=== PATIENT | female | born 1965 ===

== ENCOUNTER 2024-05-23 16:21 | Observation (INO) | payer BC, SELFPAY ==
[2024-05-23] VITALS (10 sets, daily range): BP systolic 113–155; BP diastolic 59–140; BMI 26.9; BMI 25.9
[2024-05-23 08:41] LABS: % Basophils 0.4 % (0-2); % Eosinophils 1.5 % (0-6); % Immature Granulocytes 0.5 % (0-0.5); % Monocytes 6.4 % (1.7-9.3); % Neutrophils 72.2 % (42.2-75.2); Absolute Eosinophils 0.1 10^3/uL (0-0.7); Absolute Lymphocytes 1.4 10^3/uL (1.2-3.4); Absolute Monocytes 0.5 10^3/uL (0.1-0.6); Absolute Neutrophils 5.3 10^3/uL (1.4-6.5); Hematocrit 40.1 % (37.0-47.0); Hemoglobin 13.3 g/dL (12.0-16.0); Mean Corp Hgb Conc. 33.2 g/dL (33.0-37.0); Mean Corpuscular Hgb 30.1 pg (27.0-31.0); Mean Corpuscular Volume 90.7 fL (81.0-99.0); Mean Platelet Volume 9.7 fL (7.4-10.4); Nucleated Red Blood Cells % 0 %; Platelet Count 345 10^3/uL (130-400); Red Blood Cell Count 4.42 10^6/uL (4.20-5.40); Red Cell Dist. Width 12.6 % (11.5-14.5); White Blood Cell Count 7.3 10^3/uL (4.8-10.8)
[2024-05-23 08:49] LABS: ALT (SGPT) 21 U/L (0-35); AST (SGOT) 23 U/L (14-36); Albumin 4.2 g/dl (3.5-5.0); Alkaline Phosphatase 70 U/L (38-126); Blood Urea Nitrogen 13 mg/dl (7-17); Calcium 9.7 mg/dl (8.4-10.2); Carbon Dioxide 29 mmol/L (22-30); Chloride 104 mmol/L (98-107); Glucose 98 mg/dl (70-99); Potassium 4.3 mmol/L (3.5-5.1); Sodium 139 mmol/L (135-145); Total Bilirubin 0.6 mg/dl (0.2-1.3); Total Protein 7.1 g/dl (6.3-8.2); eGFR > 60.00
[2024-05-23 08:59] LABS: Troponin I 0.017 ng/ml
[2024-05-23] MEDS: NSS 1000 IV (11:41)
[2024-05-23] MEDS: TORADOL 30 MG IV (11:41)
[2024-05-23 12:06] LABS: D-Dimer 3.12 ug/mlFEU (0.00-0.50)
[2024-05-23 12:10] LABS: COVID-19 Antigen Negative (Negative)
--- NOTE | 2024-05-23 12:38 | ED.GENMED ---
History of Present Illness
General
Chief Complaint: Breathing Problem
Source: patient
Exam Limitations: none
Time Seen by Provider: 05/23/24 10:44
Nursing documentation reviewed up to this point in time: agreed with
History of Present Illness
History of Present Illness:
PTIS A 58 Y/O F
gerd, anxiety
on 05/12 tested positive for INFLUENZA A at pcp office
symptoms headache, congestion, stuffy nose,
her pcp gave her tamiflu which she didn't take and amoxicillin (not sure why)
pt [place] and went there and back via flight
she did have a lay over
pt says she felt really ill while in [place] and flew home nad hasn't gotten better
now with more of a cough occasionally, brain fog and sob with chest tightness at times thepast 2 days
she hasnot really felt significantly SOB, she can still walk around
no syncope, voimting, diarrhea.
she has generalized [address]
Past History
Past History
ED Past Medical History: GERD and Psychiatric
ED Past Surgical History: Gynecological and Orthopedic
Review of Systems
Review of Systems
Allergies reviewed?: Yes
All Other Systems: Not applicable
Phy Exam
Physical Exam
Physical Exam:
GENERAL: Alert , in no apparent distress, nontoxic appearing
Head: Normocephalic atraumatic
EYE: pupils equal and reactive
NECK: Supple
ENT: o/p clr, mmm.
CARDIAC: Regular rate and rhythm, no edema
LUNGS: Clear breath sounds bilaterally, no acute respiratory distress, no wheezes/rales/rhonchi
ABDOMEN: Soft, without focal tenderness, no r/g, no cvat, normal bowel sounds
NEUROLOGICAL: Alert and oriented, no focal neuro deficits
SKIN: Warm and dry, skin intact.
MUSCULOSKELETAL: No edema, well perfused. neg adarsh's sign
PSYCH: Normal and appropriate interaction.
Scores
Heart Failure Risk
Heart Failure Risk Score: Not Applicable
Course
Orders/Labs/Results
Orders:
Orders
05/23/24
Electrocardiogram (*1) Stat
Comment: DONE
05/23/24 08:04
Electrocardiogram (*1) Urgent
Reason for Study: Chest Pain
Chest [CR Chest - 2 Views ] Urgent
Comment:
Reason For Exam: SOB
05/23/24 08:05
EKG- Treatment ONCE
05/23/24 08:17
Complete Blood Count/With Diff Urgent
Comprehensive Metabolic Panel Urgent
Troponin I Urgent
05/23/24 11:29
0.9% Sodium Chloride 1000 ml [Nss] 1,000 ml IV BOLUS
Ketorolac [Toradol] 30 mg IV NOW STA
05/23/24 11:42
COVID-19 Antigen Urgent
Source: Nasal Swab
D-Dimer Urgent
Troponin I Urgent
05/23/24 12:18
CT Chest PE Study Urgent
Comment:
Reason For Exam: elev d dimer, recent flu, sob
05/23/24 12:55
Electrocardiogram (*1) Urgent
Reason for Study: Chest Pain
EKG- Treatment ONCE
05/23/24 14:57
Aspirin Chewable [Low Strength Aspirin] 324 mg PO NOW STA
05/23/24 15:29
Admit/Transfer Patient As Directed
Co-Sign Provider:
Level of Care: Observation services
Assign to:: Telemetry
Physician / Group: Peter Fontaine
Diagnosis: chest pain
Reason for Telemetry: Arrhythmia
Date to Stop Telemetry: 05/26/24
Time to Stop Telemetry: 11:00
05/23/24 15:32
Code Status As Directed
Resuscitation Status: Full Code
PRN Pain Medication Management As Directed
May give lesser potent ordered pain med per pt: Yes
preference::
Protocol:: Medication orders for pain may be administered in a
manner that supports deferring to patient preference
when the pt is:
- Requesting an ordered lesser potent pain medication.
Least to most potent pain medications are defined
as: acetaminophen < NSAID < tramadol < opioids
(morphine, oxycodone, hydromorphone).
- Requesting a lesser dose of the same medication IF
ORDERED.
- Requesting a less intrusive route of administration
if both routes are prescribed by the provider (PO <
IV).
05/26/24 11:00
DC Protocol for Telemetry ONCE
Abnormal Lab Results
05/23/24 05/23/24
08:17 11:42
Lymphocytes % 19.0 L %
(20.5-51.1)
D-Dimer 3.12 H ug/mlFEU
(0.00-0.50)
05/23/24 08:17
05/23/24 08:17
Vital Signs
Initial and Last Documented VS:
Initial Vital Signs
Temp Pulse Resp BP Pulse Ox
36.7 C 57 18 130/81 100
05/23/24 08:00 05/23/24 08:00 05/23/24 08:00 05/23/24 08:00 05/23/24 08:00
Last Documented Vital Signs
Temp Pulse Resp BP Pulse Ox
36.7 C 58 15 127/88 100
05/23/24 08:00 05/23/24 12:15 05/23/24 12:15 05/23/24 12:00 05/23/24 12:15
MDM/Problems Addressed
Differential Diagnosis Includes:
COVID, pneumonia, PE, ACS, myocarditis, pericarditis
MDM/Problems Addressed:
58-year-old female with a history of GERD and anxiety presents with symptoms ongoing after being diagnosed with the flu 2 weeks ago. Patient did travel to and from [place] on an airplane while she was sick. The last 2 days specifically she is little
short of breath and does not feel right. She does have a exertional fatigue as well
carlos quiroz 58 y/o F
healthy
flu A + PCP office 05/12; headache, congestion, mild cough
traveled to and from [place] during this
came back a feels like she isn't better
but then 2 days started having exertional dyspnea and fatigue; brain fog
doesn't feel well
exam benign
no murmur appreciated
ekg t wave inv inferiorlaterally; no old ekg here but she said she has been told her ekg is abnormal
1st trop 0.017
d dimer elevated, PE study neg
2nd trop 0.03, ekg now flat t waves laterally
d/w dr. barry; pthas exertional dyspnea and fatigue; so felt best to admit, cards, echo, trop
*Critical Care Note
Total Time (30-74mins, 75-104mins- exclusive of procedures): Not Applicable
ED Attending Note
-
Portions of this chart may have been created with voice recognition software.� Occasional wrong word or��sound alike� substitutions may have occurred due to the inherent limitations of voice recognition software.
Discharge Plan
Departure
Patient Disposition: Admit
Date of Disposition: 05/23/24
Time of Disposition: 14:44
Admit to: Telemetry
Presentation/result/management discussed w/ accepting MD/DO: Hospitalist
Condition: Fair
Covid-19: Not Applicable
Discharge Problem:
CHEN (dyspnea on exertion)
Prescriptions:
No Action
DHEA 50 mg Capsule
50 mg PO DAILY
sertraline 25 mg Tablet
25 mg PO DAILY
cholecalciferol (vitamin D3) [Vitamin D3] 25 mcg (1,000 unit) Tablet
25 mcg PO DAILY
omeprazole 20 mg Tablet,Delayed Release (Dr/Ec)
20 mg PO DAILY
Referrals:
Kala Brown DO [Family Provider] -
Interventions
Interventions:
*Risk Screen - Suicide Last Done: 05/23/24 08:00
*General Assessment Last Done: 05/23/24 08:00
*Neglect/Abuse Screening Last Done: 05/23/24 08:00
ED- Fall Risk Assessment Last Done: 05/23/24 11:18
*ED COVID-19 Vaccine History Last Done: 05/23/24 08:00
ED- Cardiac Assessment Last Done: 05/23/24 11:18
ED- Pulmonary Assessment Last Done: 05/23/24 11:18
Discharge Date and Time
Print Language: ROMANIAN
--- NOTE | 2024-05-23 15:03 | HPS.HSE ---
Addendum entered and electronically signed by Peter Fontaine MD 05/23/24 15:55:
I saw and examined the patient.
The TAILING MACHINE OPERATOR's note was reviewed and I agree with the note.
Comment:
58-year-old female past medical history of anxiety, presenting with complaints of chest pain with exertion, chest tightness, shortness of breath. Patient was recently found to be positive influenza A. Patient took course of amoxicillin. Patient
flew to [place] for event and back. States since influenza she has not felt well. Also does states of increasing stress. Also not sleeping well at nighttime. States she exercises daily. Denies history of high blood pressure. Drinks occasional
red wine. Denies smoking. Denies any prior cardiac event history.
General: Middle-age female eating sandwich, not in acute distress
HEENT: NormoCephalic, Moist mucous membranes, Atraumatic,
Respiratory: Clear and Non Labored Respirations
Cardiac: S1/S2, Regular Rhythm and Bradycardia; No Murmur, Rub or Gallop
GI: Soft, Non Tender, Non Distended and Normal Bowel Sounds; No Organomegaly
Musculoskeletal: No Clubbing, No Cyanosis and No Edema
Skin: Warm
Neuro: Awake, Alert, AO x 3 and Nonfocal/grossly intact
Psych: Calm and Intact Judgment/Insight
Impression
Chest pain with exertion
Elevated blood pressure
Anxiety
GERD
Abnormal EKG
Plan
COVID and influenza negative.
Status post 325 mg of aspirin
Check lipid panel, A1c and thyroid
CT chest were negative for pulmonary embolism and/or focal infiltrate.
Trend troponin
Check echocardiogram in the morning
Continue with Zoloft
Melatonin nightly
DVT prophylaxis
Original Note:
Family Physician
-
Family Physician: Kala Brown, DO
Chief Complaint
-
dyspnea, fatigue, chest tightness
History of Present Illness
Patient is [id number] female with past medical history significant for GERD and anxiety who presented to [facility] ED for evaluation of dyspnea, fatigue and chest tightness. Patient reports that on May 12, she tested positive for
influenza A at primary care office, she was not prescribed Tamiflu but due to leaving for [place] for wedding she took course of Amoxicillin (unsure why?). She reports since returning she has had increased dyspnea mostly exertional, fatigue, brain
fog, nausea and chest tightness. She is not sure she ever full recovered from influenza. Patient denies dizziness, fevers, chills, cough, vomiting, constipation, diarrhea or urinary symptoms. She states that she was prescribed DHEA recently for
increased fatigue, brain fog and insomnia symptoms.
Medical History
Past Medical History
Past Medical History: Reports Other
Additional Past Medical History:
GERD
anxiety
Past Surgical History: Reports Other
Additional Past Surgical History:
hysterectomy
right knee meniscus repair
Social History
Tobacco: Non-smoker
Alcohol: Occasional
Drug: None
Living: With Family
Employment: Employed
Family History
Family History: Not pertinent
Allergies / Home Medications
Allergies reflects when Allergies were last updated in [employer].
Home Medications with original date entered in [employer]
Allergy/Medication List:
Allergies
Allergy/AdvReac Type Severity Reaction Status Date / Time
No Known Allergies Allergy Unverified 05/23/24 08:04
Home Medications
cholecalciferol (vitamin D3) 25 mcg (1,000 unit) tablet (Vitamin D3) 25 mcg PO DAILY 05/23/24
omeprazole 20 mg tablet,delayed release 20 mg PO DAILY 05/23/24
prasterone (dhea) 50 mg capsule (DHEA) 50 mg PO DAILY 05/23/24
sertraline 25 mg tablet 25 mg PO DAILY 05/23/24
Review of Systems
-
History Source: Patient
Constitutional: Reports Fatigue and Sleep Disturbance
EENT: Reports No Symptoms
Respiratory: Reports Cough and Trouble Breathing
Cardiac: Reports Chest Pain
Abdomen/GI: Reports Nausea
: Reports No Symptoms
Musculoskeletal: Reports No Symptoms
Skin: Reports No Symptoms
Neurological: Reports Other ('brain fog')
Endocrine: Reports No Symptoms
Hematologic/Lymphatic: Reports No Symptoms
Psych: Reports No Symptoms
Physical Exam
Vital Signs
Vital Signs
Temp Pulse Resp BP Pulse Ox
98.1 F 58 15 127/88 100
05/23/24 08:00 05/23/24 12:15 05/23/24 12:15 05/23/24 12:00 05/23/24 12:15
Physical Exam
General: Well Developed, Well Nourished, No Apparent Distress, Comfortable and Conversant
HEENT: NormoCephalic, Moist mucous membranes, Atraumatic, PERRLA, [place] Conjunctivae, Nose Appears Normal and Ears Appear Normal
Respiratory: Clear and Non Labored Respirations
Cardiac: S1/S2, Regular Rhythm and Bradycardia; No Murmur, Rub or Gallop
Breast: Deferred by me
GI: Soft, Non Tender, Non Distended and Normal Bowel Sounds; No Organomegaly
Rectal: Deferred by Provider
Genito-urinary: Deferred by me
Musculoskeletal: No Clubbing, No Cyanosis and No Edema
Skin: Warm and IV/Catheter Site; No Rash
Neuro: Awake, Alert, AO x 3 and Nonfocal/grossly intact
Psych: Calm and Intact Judgment/Insight
Laboratory Results
-
05/23/24 08:17
05/23/24 08:17
Laboratory Results
Total Bilirubin 0.6 mg/dl (0.2-1.3) 05/23/24 08:17
AST 23 U/L (14-36) 05/23/24 08:17
ALT 21 U/L (0-35) 05/23/24 08:17
Alkaline Phosphatase 70 U/L (38-126) 05/23/24 08:17
Troponin I 0.030 ng/ml D 05/23/24 11:42
Data Reviewed
-
Diagnostic Radiology: Report Reviewed by me (CXR: No acute disease of the chest)
CT Scan: Report Reviewed by me (Chest: Overall somewhat limited study as a result of respiration/motion artifact. No findings to suggest central pulmonary embolism, pneumothorax or pleural effusion Cannot exclude some soft tissue prominence of the
base of the neck/superior mediastinum such as lymphadenopathy, evaluation somewhat)
Lab Data: Labs Reviewed by me (D-Dimer 3.12, Trop 0.017&0.030, )
Impression/Plan
-
IMPRESSION/PLAN:
#chest pain and exertional dyspnea
D-Dimer 3.12
Troponin 0.017, 0.030
CXR: No acute disease of the chest
Chest CT: Overall somewhat limited study as a result of respiration/motion artifact.
No findings to suggest central pulmonary embolism, pneumothorax or pleural effusion
Cannot exclude some soft tissue prominence of the base of the neck/superior mediastinum such as lymphadenopathy, evaluation somewhat limited by artifact. When able to be obtained without artifact, dedicated CT of
the Neck with intravenous contrast recommended for more complete evaluation.
EKG: SINUS BRADYCARDIA
MINIMAL VOLTAGE CRITERIA FOR LVH, MAY BE NORMAL VARIANT ( R in aVL )
NONSPECIFIC T WAVE ABNORMALITY
- Admit to telemetry
- trend troponin
- ECHO in morning
- Consult cardiology
#GERD
- continue omeprazole
#anxiety
- continue sertraline
Code status: Full code
DVT prophylaxis: SCDs
[2024-05-23] MEDS: LOW STRENGTH ASPIRIN 324 MG PO (15:10)
--- NOTE | 2024-05-23 17:28 | CON.CAR ---
Consultation
Consultation Request
Date/Time Consultation Requested: May 23, 2024
Date/Time Consultation Performed: May 23, 2024
Requesting Provider: Hospitalist
Performing Provider: Bobbi
Reason for Consultation: Chest pain
Medical History
-
Chief Complaint: Chest pain
History of Present Illness:
58-year-old female who presents with recent flu a positive testing. She is COVID and flu negative here. 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 In the
background of 6 months of intermittent dyspnea with exertion although she exercises daily. Typically she notices it up steps and better with rest lasting a few seconds to a few minutes. She does not have traditional cardiac risk factors and has
never smoked. She has an ECG which has nonspecific ST-T changes particularly in V2 which suggest early repolarization but also has T wave inversions in lead to 3F and nonspecific lateral repolarization abnormalities in lead I and lead L. That is
consistent over 3 ECGs. She is troponin 0.01 and a troponin of 0.03. She is pain-free and not dyspneic when seen at the bedside.
She carries a history of reflux as well.
Past Medical History
Past Medical History: GERD
Social History
Tobacco: Non-Smoker
Alcohol: Occasional
Drug: None
Personal: Other
Living: Other
Employment: Employed (She works as an chemistry laboratory technician)
Family History
Family History: Reviewed & Not Pertinent
Allergies / Home Medications
Allergy/AdvReac Type Severity Reaction Status Date / Time
No Known Allergies Allergy Unverified 05/23/24 08:04
�Medication �Instructions �Recorded �Confirmed �Type
cholecalciferol (vitamin D3) 25 25 mcg PO DAILY 05/23/24 05/23/24 History
mcg (1,000 unit) tablet (Vitamin
D3)
omeprazole 20 mg tablet,delayed 20 mg PO DAILY 05/23/24 05/23/24 History
release
prasterone (dhea) 50 mg capsule 50 mg PO DAILY 05/23/24 05/23/24 History
(DHEA)
sertraline 25 mg tablet 25 mg PO DAILY 05/23/24 05/23/24 History
Review of Systems
-
All other systems: Negative unless noted
Respiratory: Trouble Breathing
Cardiac: Chest Pain
Physical Exam
Vital Signs
Temp Pulse Resp BP Pulse Ox
98.1 F 58 15 127/88 100
05/23/24 08:00 05/23/24 12:15 05/23/24 12:15 05/23/24 12:00 05/23/24 12:15
Lab Results
05/23/24 08:17
05/23/24 08:17
Troponin I 0.030 ng/ml D 05/23/24 11:42
Physical Exam
General: Well Developed, Well Nourished and No Apparent Distress
HEENT: Normocephalic and Anicteric
Respiratory: Clear
Cardiac: S1/S2, Regular Rhythm and Murmur (No murmur)
Breast: Deferred by me
GI: Soft, Non Tender and Non Distended
Rectal: Deferred by Provider
Genito-urinary: Clear Urine
Musculoskeletal: No Clubbing and No Cyanosis
Skin: Warm and Dry
Neuro: Awake, Alert and Oriented
Hematologic/Lymphatic: No Lymphadenopathy
Psych: Calm
Impression / Plan
-
Impression:
Recent flu infection
Dyspnea on exertion x 6 months
Abnormal ECG�nonspecific ST-T changes
Troponin 0.03
History of GERD
History of depression
Recommendations:
I do not suspect that her chest symptoms are related to obstructive coronary artery disease. She may have a mild myopericarditis from her recent flu a infection and her ECG is nonspecific
Can maintain on telemetry overnight
Will check an echocardiogram in the morning to look for any regional wall motion abnormality and to assess her ejection fraction
Check another troponin in the morning
Depending upon echo results and troponin result would likely consider outpatient stress testing which could be done after discharge. Certainly if she has ongoing symptoms with rising troponin or regional wall motion abnormality would then consider
an invasive assessment prior to discharge.
We will follow with you
Data Reviewed
-
EKG: Tracing Personally Visualized and interpreted
CT Scan: Report Reviewed by me
Labs: Labs Reviewed by me
Old Records: Reviewed
[2024-05-23 18:52] LABS: Troponin I 0.015 ng/ml
--- NOTE | 2024-05-23 19:24 | PTCARENOTE ---
pt arrived to unit at 1755 via stretcher from ED. ambulated from hallway to bed w/out assist. tele number [phone] NSR. assessment and admissions completed by this nurse. oriented to unit
[2024-05-23] MEDS: MELATONIN 5 MG PO (22:00)
[2024-05-24 02:57] VITALS: BP 108/60
[2024-05-24 06:58] LABS: Hematocrit 37.8 % (37.0-47.0); Hemoglobin 12.7 g/dL (12.0-16.0); Mean Corp Hgb Conc. 33.6 g/dL (33.0-37.0); Mean Corpuscular Hgb 30.2 pg (27.0-31.0); Mean Corpuscular Volume 89.8 fL (81.0-99.0); Mean Platelet Volume 9.4 fL (7.4-10.4); Platelet Count 312 10^3/uL (130-400); Red Blood Cell Count 4.21 10^6/uL (4.20-5.40); Red Cell Dist. Width 12.7 % (11.5-14.5); White Blood Cell Count 6.4 10^3/uL (4.8-10.8)
[2024-05-24 07:21] LABS: Troponin I 0.016 ng/ml
[2024-05-24 07:28] VITALS: BP 123/81
[2024-05-24] MEDS: PROTONIX 40 MG PO (07:34)
[2024-05-24] MEDS: ZOLOFT 25 MG PO (07:34)
[2024-05-24] MEDS: VITAMIN D3 (cholecalciferol) 25 MCG PO (07:34)
[2024-05-24 08:05] LABS: ALT (SGPT) 17 U/L (0-35); AST (SGOT) 21 U/L (14-36); Alkaline Phosphatase 69 U/L (38-126); Blood Urea Nitrogen 12 mg/dl (7-17); Calcium 9.2 mg/dl (8.4-10.2); Carbon Dioxide 25 mmol/L (22-30); Chloride 104 mmol/L (98-107); Estimated Creatinine Clearance 81 ml/min; Glucose 91 mg/dl (70-99); HDL Cholesterol 62 mg/dl; LDL Cholesterol, Calculated 150 mg/dl; Potassium 4.4 mmol/L (3.5-5.1); Sodium 137 mmol/L (135-145); Total Bilirubin 0.7 mg/dl (0.2-1.3); Total Cholesterol 230 mg/dl (50-199); Total Protein 6.4 g/dl (6.3-8.2); Triglyceride 90 mg/dl (10-149); Very Low Density Lipoprotein 18 mg/dl (0-30); eGFR > 60.00
[2024-05-24] MEDS: MOTRIN 400 MG PO (08:13)
[2024-05-24 08:27] LABS: Glycohemoglobin (HgbA1c) 5.8 % (4.0-5.6)
[2024-05-24 08:30] LABS: TSH Reflex To Free T4 1.43 uIU/ml (0.47-4.68)
--- NOTE | 2024-05-24 10:52 | W.PN.HOSP.TC ---
Today's Communication/Plan
-
Echo
cards recs
oob/ambulate
Assessment / Plan
Assessment / Plan
#Dyspnea on exertion
#Chest tightness
#Abnormal EKG
COVID influenza was negative.
CT chest was negative for pulmonary embolism and no local infiltrates. Cannot exclude some soft tissue prominence of the base of the neck/superior mediastinum such as lymphadenopathy, evaluation somewhat limited by artifact. When able to be obtained
without artifact, dedicated CT of the Neck with intravenous contrast recommended for more complete evaluation.
Troponin seems to be flat/plateaued
Remains on room air.
Blood pressure has stabilized.
Seems chronically bradycardic
Echocardiogram pending.
May require outpatient stress testing if echo normal
#Hyperlipidemia
Patient would like to try diet and exercise
Recommend to follow-up with PCP
If no improvement recommended being started on anticholesterol medication
#GERD continue PPI
Severe anxiety�continue SSRI
Recent flu infection
Headache-tylenol/motrin prn
dvt ppx-lovenox
Anticipated Discharge: Today
Subjective/Interval History
-
Date of Service: May 24, 2024
had a headache earlier
no chest tightness this morning
no sob
Objective Data
-
Labs:
Laboratory Results
05/24/24
06:49
WBC 6.4
Hgb 12.7
Hct 37.8
Plt Count 312
Sodium 137
Potassium 4.4
Chloride 104
Carbon Dioxide 25
BUN 12
Creatinine 0.7
Glucose 91
Calcium 9.2
Total Bilirubin 0.7
AST 21
ALT 17
Alkaline Phosphatase 69
Vital Signs:
Vital Signs
Temp Pulse Resp BP Pulse Ox
97.7 F 57 18 123/81 97
05/24/24 07:28 05/24/24 07:28 05/24/24 07:28 05/24/24 07:28 05/24/24 07:28
I&O
05/23/24 05/24/24 05/25/24
06:59 06:59 06:59
Intake Total 480 / 480
Balance 480 / 480
Physical Exam
-
General: Well Developed and No Apparent Distress
HEENT: Normocephalic, Atraumatic and Moist Mucous Membranes
Respiratory: Clear to Auscultation
Cardiac: Regular Rhythm and S1/S2; Negative Murmur, Rub or Gallop
GI: Soft, Nontender, Nondistended and Normal Bowel Sounds; Negative Organomegaly
Rectal: Deferred by Provider
Musculoskeletal: No Clubbing, No Cyanosis and No Edema
Skin: Negative Rash
Neuro: Awake, Alert, Oriented, AO x 3, No Motor Deficits and Nonfocal/Grossly Intact
Psych: Calm
--- NOTE | 2024-05-24 11:30 | CM ---
Addendum entered by BELINDA Ortiz 05/24/24 11:34:
laundry. She can drive and can get to her appoints and do her own shopping. She has never had VN or SNF.
She has a prescription plan and uses, [facility] for all of her medications.
Her PCP is, Kala Brown.
Patient's spouse was advised of OBS status. He is agreeable Form on chart.
Plan: Case management will continue to follow and assist with discharge planning. Patient's spouse anticipates that patient will be able to return home when medically cleared for discharge.
Original Note:
Patient currently in echo. Placed a call to spouse to obtain information for assessment. He stated that patient lives with him and their two chilren in a one story home with one step to enter. She is independent with her ADLs, personal care,
dressing and bathing. She can do houshold chores, cook, clean and do laundru
[2024-05-24 11:53] VITALS: BP 136/80
--- NOTE | 2024-05-24 13:14 | W.PN.CARDCBS ---
Addendum entered and electronically signed by Daniel Bernard MD 05/24/24 13:34:
I saw and examined the patient.
The INTERNET MARKETING STRATEGIST or PA's note was reviewed and I agree with the note.
Comment: General: Well developed, well nourished in NAD.
Neck: Supple, no JVD, HJR, carotids +2 B/L, no bruits bilaterally.
Heart: Non displaced PMI, RRR, no murmurs, No S3, S4, no rubs.
Lungs: Clear to auscultation bilaterally, no wheeze, rhonchi, rubs bilaterally,
Extremities: No clubbing, cyanosis or edema bilaterally.
Neuro: Grossly nonfocal, awake, alert and oriented x3.
Echocardiogram okay. Stable cardiology status for discharge. Will arrange outpatient exercise sestamibi stress test. Discussed with primary service
Original Note:
Today's Communication / Plan
-
Will arrange for outpatient exercise nuclear stress test
Impression / Plan
-
PCP: Kala Valles
Cardiology: None
Impression:
Recent influenza infection
tested positive for influenza A at PCP office 05/12/24
Dyspnea on exertion x 6 months
Abnormal ECG�nonspecific ST-T changes
Serially normal Troponin levels
History of GERD
History of depression
Hyperlipidemia, LDL 150
Echo 05/24/2024: EF 64%, no WMA, mild MR, trace aortic regurgitation
Plan:
-Echo noted above showed preserved EF without WMA and no evidence of significant valve disease
-Troponin levels are serially normal
-LDL 150 and patient declined statin. Patient to work on diet and exercise and recheck CVE in 3 months
-Will arrange for an outpatient exercise nuclear stress test
HPI: 58-year-old female who presents with recent flu a positive testing. She is COVID and flu negative here. 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 In the
background of 6 months of intermittent dyspnea with exertion although she exercises daily. Typically she notices it up steps and better with rest lasting a few seconds to a few minutes. She does not have traditional cardiac risk factors and has
never smoked. She has an ECG which has nonspecific ST-T changes particularly in V2 which suggest early repolarization but also has T wave inversions in lead to 3F and nonspecific lateral repolarization abnormalities in lead I and lead L. That is
consistent over 3 ECGs. She is troponin 0.01 and a troponin of 0.03. She is pain-free and not dyspneic when seen at the bedside.
Progress Note - Recruitment Intern
Subjective
Date of Service: May 24, 2024
No more chest pain
Objective
Labs:
05/24/24 06:49
05/24/24 06:49
Labs
Hgb 12.7 g/dL (12.0-16.0) 05/24/24 06:49
Hct 37.8 % (37.0-47.0) 05/24/24 06:49
Plt Count 312 10^3/uL (130-400) 05/24/24 06:49
Sodium 137 mmol/L (135-145) 05/24/24 06:49
Potassium 4.4 mmol/L (3.5-5.1) 05/24/24 06:49
BUN 12 mg/dl (7-17) 05/24/24 06:49
Creatinine 0.7 mg/dL (0.6-1.0) 05/24/24 06:49
Glucose 91 mg/dl (70-99) 05/24/24 06:49
Troponins
05/23/24 05/23/24 05/23/24
08:17 11:42 18:23
Troponin I 0.017 0.030 D 0.015 D
05/23/24 05/23/24 05/24/24
22:01 23:55 06:49
Troponin I 0.030 D Cancelled 0.016
Vital Signs and I&O:
Vital Signs
Temp Pulse Resp BP Pulse Ox
97.8 F 52 22 136/80 100
05/24/24 11:53 05/24/24 11:53 05/24/24 11:53 05/24/24 11:53 05/24/24 11:53
Vital Signs
Temp Pulse Resp BP Pulse Ox
97.8 F 52 22 136/80 100
05/24/24 11:53 05/24/24 11:53 05/24/24 11:53 05/24/24 11:53 05/24/24 11:53
Intake & Output
05/22/24 05/23/24 05/24/24 05/25/24
06:59 06:59 06:59 06:59
Intake Total 480 / 480
Balance 480 / 480
Physical Exam
Physical Exam
GEN: NAD
LUNGS: RA
CV: SR on tele
--- NOTE | 2024-05-24 13:52 | W.DCSUMMARY ---
Discharge Summary
Discharge Data
Date of Admission: 05/23/24
Date of Discharge: 05/24/24
-
Pending Results: No
Hospital Course
58-year-old female past medical history of hyperlipidemia, GERD, severe anxiety, recent flu infection this presenting from home with multiple complaints including of chest tightness, dyspnea on exertion, headache and generalized weakness. Patient
recently was diagnosed with flu via primary doctor and also patient took a course of amoxicillin. Patient went to [facility] for social event and then after returning back she has been feeling weak. Patient in the ER was found to have mild abnormal
EKG. Troponins were checked were found to be a plateau/flat. Patient at with elevated D-dimer and underwent CT chest which was negative for pulmonary embolism and no local infiltrates. Cannot exclude some soft tissue prominence of the base of the
neck/superior mediastinum such as lymphadenopathy, evaluation somewhat limited by artifact. When able to be obtained without artifact, dedicated CT of the Neck with intravenous contrast recommended for more complete evaluation. CAT scan finding was
discussed with the patient and she verbalized understanding follow-up with primary doctor. Patient underwent echocardiogram with EF of 64%. Normal diastolic function. Normal left ventricular size and function. No regional wall motion abnormality
was seen. Patient blood pressure was stable. Patient case was discussed with cardiology and patient can be discharged home. Cardiology office will arrange for patient outpatient stress testing.
Discharge Plan
-
Patient Disposition: Home (Routine Discharge)
Discharge Diagnosis/Procedures: Dyspnea on exertion
Abnormal EKG
Condition: Fair
Diet: Low Cholesterol
Activity: With assistance and As tolerated
Driving Restrictions: As prior to admission
Others Tests: Cannot exclude some soft tissue prominence of the base of the neck/superior mediastinum such as lymphadenopathy. CT of the Neck with intravenous contrast recommended for more complete evaluation via primary doctor.
Referrals:
Richie Martines MD [Active] - in two to four weeks (The office is working on scheduling a stress test and cardiology follow-up visit and we will call you with these appointment times.)
Kala Brown, DO [Family Provider] - in less than 1 week
Prescriptions:
Continued
DHEA 50 mg Capsule
50 mg PO DAILY
sertraline 25 mg Tablet
25 mg PO DAILY
cholecalciferol (vitamin D3) [Vitamin D3] 25 mcg (1,000 unit) Tablet
25 mcg PO DAILY
omeprazole 20 mg Tablet,Delayed Release (Dr/Ec)
20 mg PO DAILY
Discharge Orders:
Discharge Patient (As Directed); Ordered 05/24/24
Ordered By: Peter Fontaine
Discharge Date and Time
Print Language: WOLOF
[2024-05-24 14:34] VITALS: BP 146/86
== END 2024-05-24 15:08 | disposition home or self-care (01) ==
LOC: 3 WEST ACU 16:21
PROVIDERS: Nurse Practitioner Family; Physician Assistant; ADMITTING PHYSICIAN Hospitalist; CONSULT PHYSICIAN Internal Medicine Cardiovascular Disease; EMERGENCY PHYSICIAN Emergency Medicine; FAMILY PHYSICIAN Family Medicine
DX: R06.09 Other forms of dyspnea (principal); R06.02 Shortness of breath; R07.89 Other chest pain; R51.9 Headache, unspecified; R09.81 Nasal congestion; R05.9 Cough, unspecified; R53.1 Weakness; R00.1 Bradycardia, unspecified; R53.83 Other fatigue; R79.89 Other specified abnormal findings of blood chemistry; R03.0 Elevated blood-pressure reading, without diagnosis of hypertension; G47.00 Insomnia, unspecified; R94.31 Abnormal electrocardiogram [ECG] [EKG]; M25.78 Osteophyte, vertebrae; E78.5 Hyperlipidemia, unspecified; K21.9 Gastro-esophageal reflux disease without esophagitis; F41.9 Anxiety disorder, unspecified; Z79.899 Other long term (current) drug therapy; Z11.52 Encounter for screening for COVID-19; Z90.710 Acquired absence of both cervix and uterus
CPT/HCPCS: 71046; 71275; 80053; 80061; 83036; 84443; 84484; 85025; 85027; 85379; 87811; 93005; 93306; 96361; 96374; 99285; G0378; Q9967

== ENCOUNTER → 2024-06-09 08:41 | Outpatient (REF) | payer BC, SELFPAY | LOC: HWRCS 08:41 | PROVIDERS: ATTENDING PHYSICIAN Internal Medicine Cardiovascular Disease | DX: R07.89 Other chest pain (principal); R06.09 Other forms of dyspnea; E78.2 Mixed hyperlipidemia | CPT/HCPCS: 78452; 93017; A9500 ==

== ENCOUNTER 2024-07-05 06:37 | Emergency (ER) | payer BC, SELFPAY ==
[2024-07-05 06:43] VITALS: BP 124/86
[2024-07-05 07:25] VITALS: BMI 26.4
[2024-07-05 07:36] LABS: % Basophils 0.4 % (0-2); % Eosinophils 2.4 % (0-6); % Immature Granulocytes 0.3 % (0-0.5); % Lymphocytes 18.5 % (20.5-51.1); % Monocytes 6.1 % (1.7-9.3); % Neutrophils 72.3 % (42.2-75.2); Absolute Eosinophils 0.2 10^3/uL (0-0.7); Absolute Lymphocytes 1.3 10^3/uL (1.2-3.4); Absolute Monocytes 0.4 10^3/uL (0.1-0.6); Absolute Neutrophils 5.1 10^3/uL (1.4-6.5); Hematocrit 39.3 % (37.0-47.0); Hemoglobin 13.1 g/dL (12.0-16.0); Mean Corp Hgb Conc. 33.3 g/dL (33.0-37.0); Mean Corpuscular Hgb 30.4 pg (27.0-31.0); Mean Corpuscular Volume 91.2 fL (81.0-99.0); Mean Platelet Volume 9.8 fL (7.4-10.4); Nucleated Red Blood Cells % 0 %; Platelet Count 279 10^3/uL (130-400); Red Blood Cell Count 4.31 10^6/uL (4.20-5.40); Red Cell Dist. Width 12.6 % (11.5-14.5)
--- NOTE | 2024-07-05 07:44 | ED.GENMED ---
History of Present Illness
General
Chief Complaint: Chest Pain
Source: patient and family
Exam Limitations: none
Time Seen by Provider: 07/05/24 07:03
Nursing documentation reviewed up to this point in time: agreed with
History of Present Illness
History of Present Illness:
58-year-old female past medical history of GERD presenting to the emergency department today with concerns of central chest pain and intermittent palpitations at night. She feels she has had a mental fog over the past couple months. Was here for
similar symptoms 1 month ago and had a workup without emergent findings. Also has had a stress test and echo CT of the chest without any emergent findings.
Past History
Past History
ED Past Medical History: GERD and Psychiatric
ED Past Surgical History: Gynecological and Orthopedic
Review of Systems
Review of Systems
Allergies reviewed?: Yes
All Other Systems: ROS reviewed and negative except as documented in HPI and ROS
Phy Exam
Physical Exam
Physical Exam:
GENERAL: Alert , in no apparent distress
EYE: pupils equal and reactive
NECK: Supple, no significant adenopathy.
ENT: o/p clr, mmm.
CARDIAC: Regular rate and rhythm .
LUNGS: Clear breath sounds bilaterally, no acute respiratory distress, no wheezes/rales/rhonchi
ABDOMEN: Soft, without focal tenderness, no r/g, no cvat
NEUROLOGICAL: Alert and oriented, no focal neuro deficits
SKIN: Warm and dry, skin intact.
MUSCULOSKELETAL: No edema, well perfused.
PSYCH: Normal and appropriate interaction.
Scores
Heart Score for Chest Pain Patients
STEMI patient?: Not applicable
Course
Orders/Labs/Results
Orders:
Orders
07/05/24 06:47
ECG [Electrocardiogram (*1)] Urgent
Reason for Study: Chest Pain
EKG- Treatment ONCE
07/05/24 07:17
Cardiac Monitoring- Treatment ONCE
Urinalysis Reflex To Culture Urgent
07/05/24 07:26
Complete Blood Count/With Diff Urgent
Comprehensive Metabolic Panel Urgent
Magnesium Urgent
TSH Urgent
Troponin I Urgent
07/05/24 08:43
EKG- Treatment ONCE
07/05/24 10:12
Troponin I Urgent
07/05/24 10:15
Electrocardiogram (*1) Urgent
Reason for Study: Fatigue / Weakness
Abnormal Lab Results
07/05/24 07/05/24
07:26 10:12
Lymphocytes % 18.5 L %
(20.5-51.1)
BUN 19 H mg/dl
(7-17)
Glucose 106 H mg/dl
(70-99)
Troponin I 0.036 H* ng/ml 0.035 H* ng/ml
07/05/24 07:26
07/05/24 07:26
Vital Signs
Initial and Last Documented VS:
Initial Vital Signs
Temp Pulse Resp BP Pulse Ox
97.4 F 64 18 124/86 96
07/05/24 06:43 07/05/24 06:43 07/05/24 06:43 07/05/24 06:43 07/05/24 06:43
Last Documented Vital Signs
Temp Pulse Resp BP Pulse Ox
97.4 F 58 16 115/74 99
07/05/24 06:43 07/05/24 11:45 07/05/24 11:45 07/05/24 11:00 07/05/24 11:45
MDM/Problems Addressed
MDM/Problems Addressed:
58-year-old female presenting to the emergency department today with concerns of palpitations overnight has had intermittent chest pain over the past month or so. Here for similar symptoms a month ago without emergent findings. Has follow-up with
cardiology. Vital signs normal on arrival. Normal heart and lung examination. Initial troponin marginally elevated at 0.036. Has had marginally elevated levels in the past at 0.03. No chest pain at any point EKG is unchanged. EKG repeated at 3
hours as well as troponin repeated which is downtrending. Very unlikely represent ACS safer outpatient close follow-up. Return precautions given.
*Critical Care Note
Total Time (30-74mins, 75-104mins- exclusive of procedures): Not Applicable
ED Attending Note
-
Portions of this chart may have been created with voice recognition software.� Occasional wrong word or��sound alike� substitutions may have occurred due to the inherent limitations of voice recognition software.
Discharge Plan
Departure
Patient Disposition: Home (Routine Discharge)
Date of Disposition: 07/05/24
Time of Disposition: 11:53
Patient with high blood pressure during this ER visit?: No
Condition: Good
Covid-19: Not Applicable
Discharge Problem:
Heart palpitations, Fatigue
Prescriptions:
No Action
DHEA 50 mg Capsule
50 mg PO DAILY
sertraline 25 mg Tablet
25 mg PO DAILY
cholecalciferol (vitamin D3) [Vitamin D3] 25 mcg (1,000 unit) Tablet
25 mcg PO DAILY
omeprazole 20 mg Tablet,Delayed Release (Dr/Ec)
20 mg PO DAILY
cyanocobalamin (vitamin B-12) 1,000 mcg Tablet
1,000 mcg PO DAILY
Theragen Tablet
1 tab PO DAILY
rizatriptan 10 mg Tablet,Disintegrating
0 mg PO .COMPLEX
Rx Instructions:
take 1 tab at onset of headache; if no relief may repeat 1 tab after at least 2 hrs; max = 3 tabs/24 hr
estradiol 0.025 mg/24 hr Patch Semiweekly
1 patch TRANSDERMAL Q3D
Referrals:
Robbi Fontaine MD [Family Provider] -
Activity Restrictions/Additional Instructions:
You came to the emergency department today with concerns of ongoing fatigue palpitations. You will need further workup with your primary care doctor and cardiology in the next week or 2. Please follow closely. Return for any worsening, new or
concerning symptoms.
Interventions
Interventions:
*Risk Screen - Suicide Last Done: 07/05/24 06:43
*General Assessment Last Done: 07/05/24 07:38
*Neglect/Abuse Screening Last Done: 07/05/24 06:43
*ED COVID-19 Vaccine History Last Done: 07/05/24 07:38
ED- Cardiac Assessment Last Done: 07/05/24 07:38
ED-Psychological Assessment Last Done: 07/05/24 07:38
Discharge Date and Time
Print Language: [id number]
[2024-07-05 08:00] VITALS: BP 117/91
[2024-07-05 08:05] LABS: Troponin I 0.036 ng/ml
[2024-07-05 08:08] LABS: ALT (SGPT) 16 U/L (0-35); AST (SGOT) 21 U/L (14-36); Albumin 4.4 g/dl (3.5-5.0); Alkaline Phosphatase 78 U/L (38-126); Blood Urea Nitrogen 19 mg/dl (7-17); Calcium 9.5 mg/dl (8.4-10.2); Carbon Dioxide 28 mmol/L (22-30); Chloride 103 mmol/L (98-107); Estimated Creatinine Clearance 71 ml/min; Glucose 106 mg/dl (70-99); Magnesium 2.2 mg/dl (1.6-2.3); Potassium 4.3 mmol/L (3.5-5.1); Sodium 140 mmol/L (135-145); Total Bilirubin 0.7 mg/dl (0.2-1.3); Total Protein 6.8 g/dl (6.3-8.2); eGFR > 60.00
[2024-07-05 08:18] LABS: TSH 1.15 uIU/ml (0.47-4.68)
[2024-07-05 09:00] VITALS: BP 106/69
[2024-07-05 10:00] VITALS: BP 127/84
[2024-07-05 10:45] LABS: Troponin I 0.035 ng/ml
[2024-07-05 11:00] VITALS: BP 115/74
== END 2024-07-05 12:21 | disposition home or self-care (01) ==
LOC: EMR 06:37
PROVIDERS: Physician Assistant; EMERGENCY PHYSICIAN Emergency Medicine; FAMILY PHYSICIAN Family Medicine
DX: R00.2 Palpitations (principal); R53.83 Other fatigue; K21.9 Gastro-esophageal reflux disease without esophagitis
CPT/HCPCS: 99283; 80053; 83735; 84443; 84484; 85025; 93005